=== PATIENT | female | born 1940 | race American Indian/Alaskan Native ===

== ENCOUNTER 2019-04-17 14:37 | Inpatient (IN) ==
[2019-04-17] MEDS ORDERED: Sodium Chloride 0.9% 1,000 ML PRIMARY IV ONE ×2 (15:07→19:07)
[2019-04-17 15:29] LABS: BASOPHILS # (AUTO) 0.01 10*3/UL; BASOPHILS % (AUTO) 0.1 % (0-1); EOSINOPHILS # (AUTO) 0.02 10*3/UL; EOSINOPHILS % (AUTO) 0.2 % (0-8); Hematocrit [HCT] 42.4 % (37.0-47.0); Hemoglobin [HGB] 14.3 g/dL (12.0-16.0); LYMPHOCYTES # (AUTO) 1.26 10*3/uL; MEAN CORPUSCULAR HGB CONC 33.7 g/dL (33-37); MEAN CORPUSCULAR VOLUME 93.4 FL (81-99); MEAN PLATELET VOLUME 10.7 FL (7.4-12.2); MONOCYTES % (AUTO) 5.2 % (5-15); NEUTROPHILS % (AUTO) 81.1 % (50-80); RED BLOOD COUNT 4.54 10^6/uL (4.20-5.40)
[2019-04-17 15:31] LABS: VENOUS PH 7.45 (7.32-7.42)
[2019-04-17 15:35] LABS: WBC MORPHOLOGY COMMENT NORMAL MORPHOLOGY (NORM)
[2019-04-17 15:36] LABS: PLATELET MORPHOLOGY COMMENT NORMAL MORPHOLOGY (NORM); RBC MORPHOLOGY COMMENT NORMAL MORPHOLOGY (NORM)
[2019-04-17 15:38] LABS: BLOOD UREA NITROGEN 27 mg/dL (7-22); SERUM ALBUMIN 4.2 g/dL (3.5-4.8)
[2019-04-17 16:20] LABS: BILIRUBIN,URINE NEGATIVE (NEG); CLARITY,URINE Slightly Cloudy (CLEAR); COLOR,URINE YELLOW (Y); GLUCOSE, URINE (UA) 500 mg/dL (NEG); OCCULT BLOOD,URINE SMALL (NEG); PH,URINE 5.5 (5.0-8.5); PROTEIN,URINE NEGATIVE (NEG); UROBILINOGEN,URINE 0.2 EU/dL (0.2)
[2019-04-17 16:24] LABS: BACTERIA,URINE MODERATE; RBC,URINE 0-1 /hpf; SQUAMOUS EPITHELIAL CELL,UR RARE; URINE CASTS RARE; URINE SAMPLE TYPE CATH SPECIMEN
[2019-04-17 16:31] LABS: AMPHETAMINE SCREEN NEGATIVE (NEG); CANNABINOID SCREEN,URINE NEGATIVE (NEG); COCAINE SCREEN NEGATIVE (NEG); METHADONE URINE SCREEN NEGATIVE (NEG); METHAMPHETAMINES SCREEN,URINE NEGATIVE (NEG); OPIATE SCREEN,URINE NEGATIVE (NEG)
[2019-04-17] MEDS ORDERED: cefTRIAXone Inj 2 GM in Sodium Chloride 0.9% 100 ML IV SCH (18:45)
[2019-04-17] MEDS ORDERED: Insulin Lispro Flexpen 300 UNIT/3 ML INSULN.PEN SUBCUT ONE (19:07)
[2019-04-17] MEDS ORDERED: Magnesium Sulfate 2gm (Premix) 2 GM/50 ML BAG IV ONE (19:07)
[2019-04-17] MEDS ORDERED: LIDOCAINE W/ SODIUM BICARB 0.5 ML SYR SUBD PRN (19:07)
[2019-04-17] MEDS: metFORMIN 850 MG TABLET PO SCH (20:01)
[2019-04-17] MEDS: Lactated Ringers 1,000 ML PRIMARY IV SCH (20:42)
[2019-04-17] MEDS: cefTRIAXone Inj 2 GM in Sodium Chloride 0.9% 100 ML IV SCH (20:48)
[2019-04-18 04:29] LABS: BASOPHILS # (AUTO) 0.02 10*3/UL; BASOPHILS % (AUTO) 0.2 % (0-1); EOSINOPHILS # (AUTO) 0.17 10*3/UL; EOSINOPHILS % (AUTO) 1.9 % (0-8); Hemoglobin [HGB] 11.8 g/dL (12.0-16.0); MEAN CORPUSCULAR HGB CONC 33.7 g/dL (33-37); MEAN CORPUSCULAR VOLUME 94.9 FL (81-99); MEAN PLATELET VOLUME 9.8 FL (7.4-12.2); MONOCYTES # (AUTO) 0.55 10*3/UL (0.3-0.8); MONOCYTES % (AUTO) 6.2 % (5-15); NEUTROPHILS % (AUTO) 65.5 % (50-80); RED BLOOD COUNT 3.69 10^6/uL (4.20-5.40)
[2019-04-18 04:39] LABS: BLOOD UREA NITROGEN 15 mg/dL (7-22); PLATELET MORPHOLOGY COMMENT NORMAL MORPHOLOGY (NORM); RBC MORPHOLOGY COMMENT NORMAL MORPHOLOGY (NORM); WBC MORPHOLOGY COMMENT NORMAL MORPHOLOGY (NORM)
[2019-04-18] MEDS: Lactated Ringers 1,000 ML PRIMARY IV SCH ×3 (05:10→18:53)
[2019-04-18] MEDS ORDERED: Magnesium Sulfate 2gm (Premix) 2 GM/50 ML BAG IV ONE ×2 (07:20→10:56)
[2019-04-18] MEDS: metFORMIN 850 MG TABLET PO SCH ×2 (07:25→17:12)
[2019-04-18] MEDS: POTASSIUM CHLORIDE 20 MEQ TAB PO SCH ×2 (09:22→20:39)
[2019-04-18] MEDS: cefTRIAXone Inj 2 GM in Sodium Chloride 0.9% 100 ML IV SCH (20:37)
[2019-04-19] MEDS: Lactated Ringers 1,000 ML PRIMARY IV SCH ×2 (04:32→12:40)
[2019-04-19 05:06] LABS: BASOPHILS # (AUTO) 0.02 10*3/UL; BASOPHILS % (AUTO) 0.2 % (0-1); EOSINOPHILS # (AUTO) 0.19 10*3/UL; EOSINOPHILS % (AUTO) 2.1 % (0-8); Hemoglobin [HGB] 11.7 g/dL (12.0-16.0); LYMPHOCYTES # (AUTO) 2.83 10*3/uL; MEAN CORPUSCULAR HGB CONC 33.4 g/dL (33-37); MEAN CORPUSCULAR VOLUME 94.1 FL (81-99); MONOCYTES % (AUTO) 5.5 % (5-15); NEUTROPHILS # (AUTO) 5.57 10*3/UL; RED BLOOD COUNT 3.72 10^6/uL (4.20-5.40)
[2019-04-19 05:14] LABS: PLATELET MORPHOLOGY COMMENT NORMAL MORPHOLOGY (NORM); RBC MORPHOLOGY COMMENT NORMAL MORPHOLOGY (NORM); WBC MORPHOLOGY COMMENT NORMAL MORPHOLOGY (NORM)
[2019-04-19 05:19] LABS: BLOOD UREA NITROGEN 8 mg/dL (7-22); SERUM ALBUMIN 2.8 g/dL (3.5-4.8)
[2019-04-19 05:25] LABS: HEMOGLOBIN A1C 9.94 % (4.2-6.0)
[2019-04-19] MEDS: POTASSIUM CHLORIDE 20 MEQ TAB PO SCH ×2 (09:14→20:27)
[2019-04-19] MEDS: metFORMIN 850 MG TABLET PO SCH ×2 (10:22→17:05)
[2019-04-19] MEDS ORDERED: HEPARIN 500 UNIT/5 ML SYRINGE FOR CENTRAL LINE IVP PRN (10:40)
[2019-04-19] MEDS ORDERED: LIDOCAINE 2% 20 MG/ML - 20 ML VIAL SUBCUT PRN (10:40)
[2019-04-19] MEDS ORDERED: Lidocaine 1% 10 MG/ML - 20 ML VIAL SUBCUT PRN (10:40)
[2019-04-19 18:06] LABS: BILIRUBIN,URINE NEGATIVE (NEG); CLARITY,URINE CLEAR (CLEAR); COLOR,URINE YELLOW (Y); GLUCOSE, URINE (UA) 100 mg/dL (NEG); OCCULT BLOOD,URINE NEGATIVE (NEG); PROTEIN,URINE NEGATIVE (NEG); UROBILINOGEN,URINE 0.2 EU/dL (0.2)
[2019-04-19 19:36] LABS: URINE SAMPLE TYPE CATH SPECIMEN
[2019-04-19] MEDS: cefTRIAXone Inj 2 GM in Sodium Chloride 0.9% 100 ML IV SCH (20:26)
[2019-04-20] MEDS: metFORMIN 850 MG TABLET PO SCH ×2 (08:48→16:50)
[2019-04-20] MEDS: POTASSIUM CHLORIDE 20 MEQ TAB PO SCH ×2 (10:12→20:09)
[2019-04-20] MEDS: CEPHALEXIN 500 MG CAPSULE PO SCH ×2 (14:24→20:09)
[2019-04-21 04:32] LABS: BASOPHILS # (AUTO) 0.02 10*3/UL; BASOPHILS % (AUTO) 0.2 % (0-1); EOSINOPHILS % (AUTO) 2.2 % (0-8); Hematocrit [HCT] 39.4 % (37.0-47.0); Hemoglobin [HGB] 13.2 g/dL (12.0-16.0); LYMPHOCYTES # (AUTO) 2.63 10*3/uL; MEAN CORPUSCULAR HGB CONC 33.5 g/dL (33-37); MEAN PLATELET VOLUME 10.1 FL (7.4-12.2); MONOCYTES % (AUTO) 5.4 % (5-15); NEUTROPHILS # (AUTO) 5.91 10*3/UL; NEUTROPHILS % (AUTO) 63.6 % (50-80); RED BLOOD COUNT 4.19 10^6/uL (4.20-5.40)
[2019-04-21 04:43] LABS: BLOOD UREA NITROGEN 14 mg/dL (7-22); SERUM ALBUMIN 3.5 g/dL (3.5-4.8)
[2019-04-21 04:46] LABS: PLATELET MORPHOLOGY COMMENT NORMAL MORPHOLOGY (NORM); RBC MORPHOLOGY COMMENT NORMAL MORPHOLOGY (NORM); WBC MORPHOLOGY COMMENT NORMAL MORPHOLOGY (NORM)
[2019-04-21] MEDS: metFORMIN 850 MG TABLET PO SCH ×2 (07:15→17:05)
[2019-04-21] MEDS: CEPHALEXIN 500 MG CAPSULE PO SCH ×2 (08:36→20:32)
[2019-04-21] MEDS: POTASSIUM CHLORIDE 20 MEQ TAB PO SCH (08:36)
[2019-04-22] MEDS: metFORMIN 850 MG TABLET PO SCH ×2 (07:09→16:58)
[2019-04-23] MEDS: metFORMIN 850 MG TABLET PO SCH ×2 (07:59→16:51)
[2019-04-24 08:32] VITALS: O2SAT 94
[2019-04-24] MEDS: metFORMIN 850 MG TABLET PO SCH ×2 (08:40→17:44)
[2019-04-24 16:19] VITALS: BP 122/50; RESP 16; TEMP 97.7
== END 2019-04-24 18:19 | disposition still patient (30) | DRG 689 ==
LOC: ER 14:37 → MED/SURG 18:36
PROVIDERS: ADMIT Internal Medicine; ATTEND Internal Medicine

== ENCOUNTER 2019-04-24 13:04 | Observation (INO) ==
[2019-04-24] MEDS ORDERED: DOCUSATE 100 MG CAPSULE PO PRN (13:19)
[2019-04-24] MEDS ORDERED: ACETAMINOPHEN 325 MG TABLET PO PRN (13:19)
[2019-04-24] MEDS ORDERED: LIDOCAINE W/ SODIUM BICARB 0.5 ML SYR SUBD PRN (13:19)
[2019-04-24] MEDS ORDERED: CALCIUM CARBONATE 500 MG (TUMS) CHEWABLE TABLET PO PRN (13:19)
[2019-04-24] MEDS: metFORMIN 850 MG TABLET PO SCH (18:46)
[2019-04-25 04:05] VITALS: RESP 20
[2019-04-25] MEDS: metFORMIN 850 MG TABLET PO SCH (07:30)
[2019-04-25 13:12] VITALS: BP 126/52; TEMP 97.9; O2SAT 94
== END 2019-04-25 17:17 | disposition home or self-care (01) ==
LOC: MED/SURG
PROVIDERS: ADMIT Family Medicine; ATTEND Family Medicine